=== PATIENT | female | born 2000 ===

== ENCOUNTER 2023-08-17 07:52 | Outpatient (CLI) | payer OTHER, SELFPAY | END 2023-08-17 07:53 | disposition home or self-care (01) | LOC: AMB 08-25 15:47 | PROVIDERS: Visit Provider Family Medicine | DX: S09.90XA Unspecified injury of head, initial encounter (principal); V49.50XA Passenger injured in collision with unspecified motor vehicles in traffic accident, initial encounter; Y92.410 Unspecified street and highway as the place of occurrence of the external cause | CPT/HCPCS: A0425; A0427 ==